=== PATIENT | female | born 1985 | race Caucasian/White ===

== ENCOUNTER 2016-08-23 11:01 | Emergency (ER) | payer SELFPAY ==
[~2016-08-23] VITALS: Ht 165.1 cm; Wt 112.0 kg
[2016-08-23 15:25] LABS: PLATELET COUNT 280 x10^3mcL (130-400)
[2016-08-23 15:37] LABS: BASOPHIL % 0 % (0-2); RED CELL DISTRIBUTION WIDTH 15.3 % (11.5-14.5)
[2016-08-23 16:21] VITALS: BP 120/70
== END 2016-08-23 16:21 | disposition home or self-care (01) ==
LOC: ED 11:01
PROVIDERS: Emergency Medicine
DX: O20.0 Threatened abortion (principal); Z3A.01 Less than 8 weeks gestation of pregnancy

== ENCOUNTER 2016-08-25 08:17 | Emergency (ER) | payer SELFPAY ==
[2016-08-25 09:07] LABS: BASOPHIL % 1.6 % (0-2); PLATELET COUNT 276 x10^3mcL (130-400)
[2016-08-25 09:08] LABS: RED CELL DISTRIBUTION WIDTH 15.3 % (11.5-14.5)
[2016-08-25 13:11] VITALS: BP 140/84
== END 2016-08-25 13:11 | disposition home or self-care (01) ==
LOC: ED 08:17
PROVIDERS: Emergency Medicine
DX: O03.9 Complete or unspecified spontaneous abortion without complication (principal); Z3A.00 Weeks of gestation of pregnancy not specified
CPT/HCPCS: J1460

== ENCOUNTER 2017-06-05 11:38 | Emergency (ER) | payer BC ==
[~2017-06-05] VITALS: Ht 165.1 cm; Wt 100.7 kg
[2017-06-05 11:45] VITALS: Ht 165.1 cm; Wt 100.7 kg
[2017-06-05 14:16] VITALS: BP 129/86
== END 2017-06-05 14:16 | disposition home or self-care (01) ==
LOC: ED 11:38
DX: R10.13 Epigastric pain (principal); R11.0 Nausea

== ENCOUNTER 2018-04-02 07:56 | Emergency (ER) | payer BC ==
[~2018-04-02] VITALS: Ht 165.1 cm; Wt 105.9 kg
[2018-04-02 08:02] VITALS: Ht 165.1 cm; Wt 105.9 kg
[2018-04-02 11:00] VITALS: BP 125/79
== END 2018-04-02 11:00 | disposition home or self-care (01) ==
LOC: ED 07:56
DX: M25.512 Pain in left shoulder (principal); M54.2 Cervicalgia
CPT/HCPCS: J1885